=== PATIENT | male | born 1970 | race Caucasian/White ===

== ENCOUNTER 2016-07-15 04:22 | Emergency (ER) | payer SELFPAY ==
--- NOTE | 2016-07-15 07:04 | ER ---
ADMIT: 07/15/2016 RM/LOC: ER [facility] MR#: [id number] [address] [facility] [id number] JOHNNY HORN [address] [place] [address] Emergency Room Report SEX: M AGE: 45 : 1970 DATE: 07/15/2016 The patient is a 45-year-old male with HIV, complains of toothache for the past 12-48 hours. Denies any fevers, chills, or injury. Exam remarkable for advanced dental decay, but no soft tissue swelling of gingival area; tender #14, #15, #17, #18 teeth. Received superior alveolar nerve block and inferior alveolar block with marked improvement. Home with hydrocodone 5/325 mg p.r.n. #20 plus #6 from Pyxis; Pen-Vee K 500 mg two p.o. in department and q.i.d., #40. Follow up with dentist this week. Jean Rodgers MD/ erma JOB #: [id number] CC: Jean Rodgers MD, Attending Physician Naresh Denis MD, Family Physician Naresh Denis MD
== END 2016-07-15 05:10 | disposition home or self-care (01) ==
LOC: ER 04:22
PROC: 3E0T3CZ (ICD-10-PCS; principal; 2016-07-15)
DX: K02.9 Dental caries, unspecified (principal); Z21 Asymptomatic human immunodeficiency virus [HIV] infection status